=== PATIENT | female | born 1960 | race Caucasian/White ===

== ENCOUNTER 2019-03-27 09:53 | Emergency (ER) | payer MEDICAID, OTHER ==
[~2019-03-27] VITALS: Ht 170.2 cm; Wt 56.7 kg
[2019-03-27] MEDS ORDERED: IBUPROFEN 800 MG TAB PO ONE (12:15)
[2019-03-27 12:45] VITALS: BP 117/72
== END 2019-03-27 12:49 | disposition home or self-care (01) ==
LOC: ER 09:53
DX: S63.502A Unspecified sprain of left wrist, initial encounter (principal); M25.462 Effusion, left knee; M62.838 Other muscle spasm; Z88.5 Allergy status to narcotic agent; W01.0XXA Fall on same level from slipping, tripping and stumbling without subsequent striking against object, initial encounter; Y93.89 Activity, other specified; Y92.59 Other trade areas as the place of occurrence of the external cause; Y99.8 Other external cause status
CPT/HCPCS: 29125; 29505; 29515; 70450; 72125; 73110; 73562